=== PATIENT | male | born 1950 | race Caucasian/White ===

== ENCOUNTER → 2016-10-31 | Outpatient (CLI) | payer MEDICARE, BC ==
[~2016-10-31] MED LIST: ALPR-138 PO; CEFT500T PO; DUONEBS; NEBULIZER MACHINE; OXYC30TA PO
--- NOTE | 2016-11-03 09:21 | RSPPFT ---
DATE OF PROCEDURE: 10/31/16 COMMENTS: The forced vital capacity shows a marked reduction with significant improvement after bronchodilator. The FEV1 and FEF 25-75 are both markedly reduced with significant improvement after bronchodilator. The FEV1/FVC ratio is markedly reduced. The total lung capacity is reduced with an increased residual volume and an increased RV/TLC ratio. IMPRESSION: This is compatible with severe, large and small airways, partially reversible obstructive lung disease. The diffusion capacity, when corrected, shows a moderate reduction.
== END ==
LOC: HRSP 11:55
PROVIDERS: ATTEND Family Medicine
DX: J44.9 Chronic obstructive pulmonary disease, unspecified (principal); R06.02 Shortness of breath
CPT/HCPCS: 94060; 94726; 94729